=== PATIENT | male | born 1985 | race Caucasian/White ===

== ENCOUNTER → 2016-10-11 | Day surgery (SDC) | payer MEDICAID ==
[~2016-10-11] MED LIST: Lactated Ringers 1,000 ML IV SCH; Lactated Ringers 1,000 ML ONE; Midazolam 1 MG/ML 2 ML SDV IV ONE; Propofol 200 MG/20 ML SDV IV ONE; fentaNYL 100 MCG/2 ML SDV IV ONE
[2016-10-11 11:43] VITALS: BP 140/50
== END ==
LOC: CC.SDS 07:43
PROVIDERS: ATTEND Dentist General Practice
DX: Z01.21 Encounter for dental examination and cleaning with abnormal findings (principal); K08.9 Disorder of teeth and supporting structures, unspecified; F41.9 Anxiety disorder, unspecified; Q93.5 Other deletions of part of a chromosome; Z98.811 Dental restoration status; Z98.818 Other dental procedure status; Z79.899 Other long term (current) drug therapy; Z98.890 Other specified postprocedural states; Z88.5 Allergy status to narcotic agent; Z88.1 Allergy status to other antibiotic agents; Z91.040 Latex allergy status; Z88.8 Allergy status to other drugs, medicaments and biological substances
CPT/HCPCS: 41899; J2250; J2704; J3010; J7120

== ENCOUNTER → 2019-02-12 | Day surgery (SDC) | payer MEDICARE, MEDICAID ==
[~2019-02-12] MED LIST changes: -Lactated Ringers 1,000 ML ONE; +Ondansetron 4 MG/2 ML SDV IV ONE
[2019-02-12 11:15] VITALS: BP 114/65; PULSE 70
== END ==
LOC: CC.SDS 06:30
PROVIDERS: ATTEND Dentist General Practice
DX: K02.9 Dental caries, unspecified (principal); K59.09 Other constipation; F41.9 Anxiety disorder, unspecified; Q93.51 Angelman syndrome; G80.9 Cerebral palsy, unspecified; Z88.5 Allergy status to narcotic agent; Z88.3 Allergy status to other anti-infective agents; Z91.040 Latex allergy status; Z79.899 Other long term (current) drug therapy
CPT/HCPCS: J2250; J2405; J2704; J3010; J7120

== ENCOUNTER → 2020-03-25 | Day surgery (SDC) | payer MEDICARE, MEDICAID ==
[~2020-03-25] MED LIST changes: +Dexamethasone 4 MG/ML 5 ML MDV IV ONE; +Glycopyrrolate 0.2 MG/ML SDV IVPUSH ONE; +Lidocaine 2% 5 ML SDV IV ONE; -Midazolam 1 MG/ML 2 ML SDV IV ONE; +Succinylcholine 200 MG/10 ML MDV IV ONE
[2020-03-25 13:51] VITALS: BP 101/68; PULSE 80
== END ==
LOC: CC.SDS 09:38
PROVIDERS: ATTEND Dentist General Practice
DX: K02.9 Dental caries, unspecified (principal); Q93.51 Angelman syndrome; F41.9 Anxiety disorder, unspecified; R79.89 Other specified abnormal findings of blood chemistry; R56.9 Unspecified convulsions; Z88.8 Allergy status to other drugs, medicaments and biological substances; Z88.5 Allergy status to narcotic agent; Z91.040 Latex allergy status; Z79.899 Other long term (current) drug therapy; Z98.890 Other specified postprocedural states
CPT/HCPCS: 00170; 41899; J0330; J1100; J2001; J2405; J2704; J3010; J3490; J7120

== ENCOUNTER → 2021-04-27 | Day surgery (SDC) | payer MEDICARE, MEDICAID ==
[~2021-04-27] MED LIST changes: -Dexamethasone 4 MG/ML 5 ML MDV IV ONE; +Dexamethasone 4 MG/ML SDV ONE; -Glycopyrrolate 0.2 MG/ML SDV IVPUSH ONE; +Glycopyrrolate 0.2 MG/ML SDV ONE; -Lidocaine 2% 5 ML SDV IV ONE; +Lidocaine 2% 5 ML SDV ONE; +Naloxone 2 MG/2 ML Syringe ONE; -Ondansetron 4 MG/2 ML SDV IV ONE; +Ondansetron 4 MG/2 ML SDV ONE; +Phenylephrine 1% 10 MG/ML SDV ONE; -Propofol 200 MG/20 ML SDV IV ONE; +Propofol 200 MG/20 ML SDV ONE; -Succinylcholine 200 MG/10 ML MDV IV ONE; +Succinylcholine 200 MG/10 ML MDV ONE; +ePHEDrine 50 MG/ML SDV ONE; -fentaNYL 100 MCG/2 ML SDV IV ONE; +fentaNYL 100 MCG/2 ML SDV ONE
[2021-04-27 13:04] VITALS: BP 106/68; PULSE 75
== END ==
LOC: CC.SDS 10:00
PROVIDERS: ATTEND Dentist General Practice
DX: K02.9 Dental caries, unspecified (principal); Q76.0 Spina bifida occulta; Q93.51 Angelman syndrome; R56.9 Unspecified convulsions; Z79.899 Other long term (current) drug therapy; Z90.49 Acquired absence of other specified parts of digestive tract; F41.9 Anxiety disorder, unspecified; Z86.16 Personal history of COVID-19; Z91.040 Latex allergy status; Z88.8 Allergy status to other drugs, medicaments and biological substances
CPT/HCPCS: 00170; J0330; J1100; J2310; J2370; J2405; J2704; J3010; J3490; J7120